=== PATIENT | female | born 1965 | race Caucasian/White ===

== ENCOUNTER 2017-11-25 12:39 | Emergency (ER) | payer MEDICAID, SELFPAY ==
[~2017-11-25] VITALS: Ht 175.3 cm; Wt 65.9 kg
[2017-11-25 12:44] VITALS: BP 116/77
[2017-11-25] MEDS ORDERED: DIPH,PERTUSS(ACELL),TET VAC/PF 0.5 ML IM-VACC ONE ×2 (13:40→14:00)
[2017-11-25] MEDS ORDERED: LIDOCAINE 1%, 10ML ONE (14:03)
[2017-11-25] MEDS ORDERED: OXYcodone/APAP 5/325MG TABLET PO ONE (15:00)
[2017-11-25] MEDS ORDERED: BACITRACIN ZINC OINT 500U/GM, 0.9 GM ONE (15:05)
[2017-11-25] MEDS ORDERED: OXYcodone/APAP 5/325MG TABLET ONE (15:07)
== END 2017-11-25 15:54 | disposition home or self-care (01) ==
LOC: ED 15:30
DX: S61.452A Open bite of left hand, initial encounter (principal); W54.0XXA Bitten by dog, initial encounter; Y93.89 Activity, other specified; Y92.89 Other specified places as the place of occurrence of the external cause; Y99.8 Other external cause status
CPT/HCPCS: 90471; 90715